=== PATIENT | female | born 1955 | race Caucasian/White ===

== ENCOUNTER → 2016-03-07 | Outpatient (CLI) | payer MEDICARE, OTHER ==
--- OUTSIDE RECORDS SUMMARY | 2016-03-07 09:00 | XMS REPORT ---
Author Author YODIT GÓMEZ [facility], [place] eClinicalWorks Address Unknown Phone Unavailable Care Team Providers Care Inspector Cold Working Name Role Phone YODIT GÓMEZ CP Unavailable Allergies, Adverse Reactions, Alerts Substance Reaction Event Type N.K.D.A. Info Not Available Non Drug Allergy Problems Problem Type Condition Code Onset Dates Condition Status Assessment Panlobular emphysema J43.1 Active Problem Tobacco abuse counseling Z71.6 Active Problem COPD with exacerbation J44.1 Active Assessment Encounter for immunization Z23 Active Assessment Encounter for Zostavax administration Z23 Active Problem Dehydration E86.0 Active Problem Irritability R45.4 Active Problem Thrush B37.0 Active Problem Panlobular emphysema J43.1 Active Problem Tobacco abuse Z72.0 Active Problem COPD (chronic obstructive pulmonary disease) with acute bronchitis J44.0 Active Problem Subclinical hypothyroidism E03.9 Active Medications Medication Code System Code Instructions Start Date End Date Status Dosage Zafirlukast [facility] 52434037922 10 MG TAKE ONE TABLET BY MOUTH TWICE DAILY Ventolin HFA [facility] [address]-21 108 (90 Base) MCG/ACT Inhalation every 4 hrs August 08, 2015 2 puffs as needed Zostavax [facility] [address]-16 65949 UNT/0.65ML Subcutaneous Dec 06, 2015 as directed Brovana [facility] [address]-49 15 MCG/2ML Inhalation 3 times a day Nov 15, 2015 2 ml Loratadine [facility] [address]-31 10 mg Feb 25, 2014 1 Tablet by Oral route 1 time per day Oxygen NDC 0 4 L/NC via nasal cannula at HS 4 liters Sudafed [facility] [address]-25 30 MG Orally every 6 hrs Jan 31, 2015 1 tablet as needed for congestion Spiriva HandiHaler [facility] 13176880337 18 MCG Inhalation Once a day 1 capsule Fluoxetine HCl [facility] [address]-98 20 MG Orally Once a day Oct 26, 2015 1 capsule in the morning Prilosec NDC 71003284516 20 MG 1 capsule by Oral route 1 time per day Once a day Orally Albuterol Sulfate [facility] [address]-27 (2.5 MG/3ML) 0.083% Inhalation 4 times a day Dec 06, 2014 3 ml Procedures Procedure Coding System Code Date FLUARIX QUAD P-FREE 3 AND UP .50 2015 CPT-4 41210 Dec 06, 2015 SINGLE IMMUNIZATION ADMIN CPT-4 67358 Dec 06, 2015 MEASURE BLOOD OXYGEN LEVEL CPT-4 26823 Dec 06, 2015 Office Visit, Est Pt., Level 3 CPT-4 83626 Dec 06, 2015 COUNTS INCLUDE 234 BEDS AT THE [facility] VISIT ESTABLISHED PATIENT CPT-4 G0467 Dec 06, 2015 Vital Signs Date/Time: Dec 06, 2015 Cardiac Monitoring Heart Rate 86 bpm Weight 138.3 lbs Height 65 in BMI 23.01 Index Oximetry 97 % Blood Pressure Diastolic 60 mmHg Blood Pressure Systolic 102 mmHg Results No Known Results Immunizations Vaccine Administration Date FLUARIX QUAD P-FREE 3 AND UP .50 2015Dec 06, 2015 Summary Purpose eClinicalWorks Submission
--- NOTE | 2016-03-07 18:29 | Diagnostic Imaging Report ---
Bilateral screening mammogram The current study was also evaluated with a Computer Aided Detection (CAD) system. INDICATION: Screening. No current complaints stated on the questionnaire. COMPARISON: 11/27/2010. FINDINGS: The breasts are composed of scattered fibroglandular densities. There are scattered benign-appearing calcifications. Allowing for technique and positional differences, no suspicious change is seen. IMPRESSION: No significant change. ACR BI-RADS Category 2: Benign findings. Result letter will be mailed to the patient. Note: At least 10% of breast cancer is not imaged by mammography. Dictated by: Dictated on workstation # [id number]
== END ==
LOC: RAD 08:57
PROVIDERS: ATTEND Nurse Practitioner Family
DX: Z12.31 Encounter for screening mammogram for malignant neoplasm of breast (principal); M81.0 Age-related osteoporosis without current pathological fracture

== ENCOUNTER → 2018-03-26 | Outpatient (CLI) | payer MEDICARE ==
--- NOTE | 2018-03-26 11:08 | Diagnostic Imaging Report ---
INDICATION: Postmenopausal screening for osteoporosis. COMPARISON: 03/07/2016 FINDINGS: AP Spine L1-L4: [BMD (g/cm2): 0.903] [T-Score: -2.5] [Z-Score: -1.4] [BMD Previous: 0.911] [BMD % Change: -0.9] LT Hip Neck: [BMD (g/cm2): 0.807] [T-Score: -1.7] [Z-Score: -0.5] LT Hip Total: [BMD (g/cm2):0.875] [T-Score:-1.1] [Z-Score: -0.2] [BMD Previous: 0.866] [BMD % Change: N/A] RT Hip Neck: [BMD (g/cm2):0.849] [T-Score:-1.4] [Z-Score:-0.2] RT Hip Total: [BMD (g/cm2):0.930] [T-score:-0.6] [Z-Score:0.2] [BMD Previous:0.892] [BMD % Change:N/A] *Indicates significant change from prior examination based on 95% confidence level. World Health Organization criteria for BMD interpretation classify patients as Normal (T-score at or above -1.0), Osteopenic (T-score between -1.0 and -2.5) or Osteoporotic (T-score at or below -2.5). LIMITATIONS AND MODIFICATION: None. FRACTURE RISK (FRAX SCORE): The ten year probability of (%): Major Osteoporotic Fracture: [7.9] Hip Fracture: [0.8] IMPRESSION: 1. Osteoporosis. 2. No significant change in bone mineral density since prior examination. 3. See below National Osteoporosis Foundation guidelines on when to potentially initiate pharmacologic therapy. Based on the National Osteoporosis Foundation Guidelines, pharmacologic treatment should be initiated in any of the following, unless clinical conditions suggest otherwise: * Any patient with prior fragility fracture of the hip or vertebrae. A spine fracture indicates 5X risk for subsequent spine fracture and 2X risk for subsequent hip fracture. * Osteoporosis (T-score <-2.5). * Postmenopausal women and men age 50 and older with low bone mass/osteopenia (T-score between -1.0 and -2.5) by DXA and 10-year major osteoporotic fracture greater than 20% or a 10-year probability of hip fracture greater than 3%. These fracture risks are supplied above in the FRAX score, if applicable. * Clinician judgement and/or patient preferences may indicate treatment for people with 10-year fracture probabilities above or below these levels. Dictated by: Dictated on workstation # [id number]
--- NOTE | 2018-03-26 21:37 | Diagnostic Imaging Report ---
INDICATION: Screening. The current study was also evaluated with a Computer Aided Detection (CAD) system. Comparison is made with prior examination from 03/07/2016. 3-D tomosynthesis was performed and reviewed. FINDINGS: There are scattered fibroglandular densities bilaterally. There are a few benign-type calcifications. There is no dominant mass, spiculated lesion or suspicious calcification identified. IMPRESSION: ACR BI-RADS Category 2: Benign findings. Result letter will be mailed to the patient. Note: At least 10% of breast cancer is not imaged by mammography. Dictated by: Dictated on workstation # [id number]
== END ==
LOC: RAD 09:00
PROVIDERS: ATTEND Nurse Practitioner Family
DX: Z13.820 Encounter for screening for osteoporosis (principal); Z12.31 Encounter for screening mammogram for malignant neoplasm of breast; M85.89 Other specified disorders of bone density and structure, multiple sites; M81.0 Age-related osteoporosis without current pathological fracture; Z78.0 Asymptomatic menopausal state
CPT/HCPCS: 77067; 77080

== ENCOUNTER → 2019-08-30 | Outpatient (CLI) | payer MEDICARE ==
--- NOTE | 2019-08-30 11:46 | Diagnostic Imaging Report ---
INDICATION: Routine screening. COMPARISON: 03/26/2018 and 03/07/2016. TECHNIQUE: 2D and 3D bilateral screening mammography was performed with CAD. FINDINGS: Scattered fibroglandular densities are identified bilaterally. There are benign calcifications in both breasts. No dominant mass or malignant appearing microcalcifications are identified. The axillae are unremarkable. IMPRESSION: No mammographic features suspicious for malignancy are identified. ACR BI-RADS Category 2: Benign findings. Result letter will be mailed to the patient. Note: At least 10% of breast cancer is not imaged by mammography. Dictated by: Dictated on workstation # [id number]
== END ==
LOC: RAD 09:47
PROVIDERS: ATTEND Nurse Practitioner Family
DX: Z12.31 Encounter for screening mammogram for malignant neoplasm of breast (principal)
CPT/HCPCS: 77063; 77067

== ENCOUNTER → 2020-09-05 | Outpatient (CLI) | payer MEDICARE ==
--- NOTE | 2020-09-05 13:18 | Diagnostic Imaging Report ---
INDICATION: Postmenopausal state. COMPARISON: 03/26/2018 FINDINGS: AP Spine L1-L4: [BMD (g/cm2): 0.859] [T-Score: -2.8] [Z-Score: -2.1] [BMD Previous: 0.903] [BMD % Change: -4.9] LT Hip Neck: [BMD (g/cm2): 0.760] [T-Score: -2.0] [Z-Score: -1.1] LT Hip Total: [BMD (g/cm2):0.907] [T-Score:-0.8] [Z-Score: -0.2] [BMD Previous: 0.875] [BMD % Change: 3.7] RT Hip Neck: [BMD (g/cm2):0.802] [T-Score:-1.7] [Z-Score:-0.8] RT Hip Total: [BMD (g/cm2):0.911] [T-score:-0.8] [Z-Score:-0.2] [BMD Previous:0.930] [BMD % Change:-2.0] *Indicates significant change from prior examination based on 95% confidence level. World Health Organization criteria for BMD interpretation classify patients as Normal (T-score at or above -1.0), Osteopenic (T-score between -1.0 and -2.5) or Osteoporotic (T-score at or below -2.5). LIMITATIONS AND MODIFICATION: None. FRACTURE RISK (FRAX SCORE): The ten year probability of (%): Major Osteoporotic Fracture: [9.6] Hip Fracture: [1.3] IMPRESSION: 1. Osteoporosis. 2. No significant change in bone mineral density since prior examination. 3. See below National Osteoporosis Foundation guidelines on when to potentially initiate pharmacologic therapy. Based on the National Osteoporosis Foundation Guidelines, pharmacologic treatment should be initiated in any of the following, unless clinical conditions suggest otherwise: * Any patient with prior fragility fracture of the hip or vertebrae. A spine fracture indicates 5X risk for subsequent spine fracture and 2X risk for subsequent hip fracture. * Osteoporosis (T-score <-2.5). * Postmenopausal women and men age 50 and older with low bone mass/osteopenia (T-score between -1.0 and -2.5) by DXA and 10-year major osteoporotic fracture greater than 20% or a 10-year probability of hip fracture greater than 3%. These fracture risks are supplied above in the FRAX score, if applicable. * Clinician judgement and/or patient preferences may indicate treatment for people with 10-year fracture probabilities above or below these levels. Dictated by: Dictated on workstation # [id number]
--- NOTE | 2020-09-05 19:21 | Diagnostic Imaging Report ---
INDICATION: Routine screening. COMPARISON is made with prior mammograms 08/30/2019 and 03/26/2018. 2-D and 3-D bilateral screening mammography was performed with CAD. Scattered fibroglandular densities are identified bilaterally. No mass or malignant appearing microcalcifications are seen. Axillae are unremarkable. IMPRESSION: BI-RADS Category 1 No mammographic features suspicious for malignancy are identified. ACR BI-RADS Category 1: Negative. Result letter will be mailed to the patient. Note: At least 10% of breast cancer is not imaged by mammography. Dictated by: Dictated on workstation # [id number]
== END ==
LOC: RAD 13:00
PROVIDERS: ATTEND Nurse Practitioner Family
DX: Z12.31 Encounter for screening mammogram for malignant neoplasm of breast (principal); Z78.0 Asymptomatic menopausal state; M81.0 Age-related osteoporosis without current pathological fracture; M85.80 Other specified disorders of bone density and structure, unspecified site
CPT/HCPCS: 77063; 77067; 77080